=== PATIENT | female | born 1955 | race Caucasian/White ===

== ENCOUNTER 2016-11-22 08:25 | Day surgery (SDC) | payer OTHER ==
[~2016-11-22] VITALS: Ht 162.6 cm; Wt 117.9 kg
[2016-11-22 13:08] VITALS: BP_SYST 139
[2016-11-22] MEDS ORDERED: LR 1,000 ML IV SCH (14:38)
[2016-11-22] MEDS ORDERED: MEPERIDINE HCL/PF 25 MG/ML DISP.SYRIN IVP PRN (14:45)
[2016-11-22] MEDS ORDERED: HYDROmorphone 1 MG INJ. 1 MG/ML AMPUL IVP PRN (14:45)
[2016-11-22] MEDS ORDERED: HYDROmorphone 2 MG/ML VIAL IVP PRN ×2 (14:45)
== END 2016-11-22 14:15 | disposition home or self-care (01) ==
LOC: SDS 08:25 → SMU 08:27 → SDS 14:15
PROVIDERS: ATTEND Otolaryngology
DX: J34.2 Deviated nasal septum (principal); J32.4 Chronic pansinusitis; J34.89 Other specified disorders of nose and nasal sinuses; Z98.890 Other specified postprocedural states; Z68.41 Body mass index [BMI] 40.0-44.9, adult; E66.3 Overweight; M54.5 Low back pain; D38.5 Neoplasm of uncertain behavior of other respiratory organs; E66.01 Morbid (severe) obesity due to excess calories; I10 Essential (primary) hypertension; M19.90 Unspecified osteoarthritis, unspecified site
CPT/HCPCS: 30140; 30520; 31255; 31267; 31287; 31297; 87070; 87075; 87101; 88305; 88311; C1726; 87205-TC

== ENCOUNTER 2017-01-24 07:55 | Day surgery (SDC) | payer OTHER ==
[~2017-01-24] VITALS: Ht 162.6 cm; Wt 117.9 kg
[2017-01-24] MEDS ORDERED: DEXAMETHASONE SOD PHOSPHATE 4 MG/ML VIAL IVP ONE (07:56)
[2017-01-24] MEDS ORDERED: WATER FOR IRRIGATION,STERILE 1,000 ML IRRIG.SOLN IR ONE (07:56)
[2017-01-24] MEDS ORDERED: OXYMETAZOLINE HCL 0.05% NASAL SPRAY NS ONE (07:56)
[2017-01-24] MEDS ORDERED: SEVOFLURANE 15 MIN GAS INH ONE (07:56)
[2017-01-24] MEDS ORDERED: METOCLOPRAMIDE HCL 10 MG/2 ML VIAL IVP ONE (07:56)
[2017-01-24] MEDS ORDERED: GLYCOPYRROLATE 0.2 MG/ML VIAL IJ ONE (07:56)
[2017-01-24] MEDS ORDERED: PROPOFOL 200MG/ 20ML VIAL (DIPRIVAN) IV ONE (07:56)
[2017-01-24] MEDS ORDERED: MIDAZOLAM HCL 5 MG/ML VIAL (VERSED) IV ONE (07:56)
[2017-01-24] MEDS ORDERED: fentaNYL CITRATE/PF 100 MCG/2 ML AMP IVP ONE (07:56)
[2017-01-24] MEDS ORDERED: LEVOFLOXACIN 500 MG/D5W 100 ML PIGGYBACK IV ONE (07:56)
[2017-01-24] MEDS ORDERED: LR 1,000 ML IV.SOLN IV ONE (07:56)
[2017-01-24] MEDS ORDERED: NS IRRIG SOLN 1000 ML IR ONE (07:56)
[2017-01-24] MEDS ORDERED: LIDOCAINE/EPI 1% 1:100000 20 ML VIAL INJ ONE (07:56)
[2017-01-24] MEDS ORDERED: ROCURONIUM BROMIDE 10 MG/ML (ZEMURON) IV ONE (07:56)
[2017-01-24] MEDS ORDERED: NS 50 ML BAG IV ONE (07:56)
[2017-01-24] MEDS ORDERED: LR 1,000 ML IV ONE (10:56)
[2017-01-24] MEDS ORDERED: ePHEDrine sulfate 50 MG/ML VIAL IVP PRN (11:00)
[2017-01-24] MEDS ORDERED: ONDANSETRON HCL 4 MG/2 ML VIAL IVP PRN ×2 (11:00)
[2017-01-24] MEDS ORDERED: fentaNYL CITRATE/PF 100 MCG/2 ML AMP IVP PRN (11:00)
[2017-01-24] MEDS ORDERED: DIPHENHYDRAMINE INJ 50 MG/ML VIAL IVP PRN (11:00)
[2017-01-24] MEDS ORDERED: NALBUPHINE HCL 10 MG/ML AMP IVP PRN (11:00)
[2017-01-24] MEDS ORDERED: NALOXONE HCL 0.4 MG/ML AMP (NARCAN) IVP PRN (11:00)
[2017-01-24 12:19] VITALS: BP_SYST 145
== END 2017-01-24 14:00 | disposition home or self-care (01) ==
LOC: SDS 07:55
PROVIDERS: ATTEND Otolaryngology
DX: J32.9 Chronic sinusitis, unspecified (principal); J34.89 Other specified disorders of nose and nasal sinuses; J32.4 Chronic pansinusitis; E66.3 Overweight; M54.5 Low back pain; E66.01 Morbid (severe) obesity due to excess calories; I10 Essential (primary) hypertension; M19.90 Unspecified osteoarthritis, unspecified site
CPT/HCPCS: 31254; 31267; 31297; 87070; 87075; 87101; 87116; 88305; 93005; C1726; J7120; J1100; J1956; J2250; J2704; J2765; J3010; J3490